=== PATIENT | male | born 1935 | race Caucasian/White ===

== ENCOUNTER → 2023-12-29 | Outpatient (REF) | payer MEDICARE, SELFPAY ==
[2023-12-29 10:58] LABS: Hemoglobin A1c 6.3 % (3.8-5.6)
== END ==
LOC: OLS.ACH2 05:00
PROVIDERS: Visit Provider Internal Medicine
DX: E11.40 Type 2 diabetes mellitus with diabetic neuropathy, unspecified (principal)
CPT/HCPCS: 36415; 83036

== ENCOUNTER 2024-03-21 01:46 | Emergency (ER) | payer MEDICARE, SELFPAY ==
[2024-03-21] VITALS (8 sets, daily range): BP systolic 121–138; BP diastolic 50–64; PULSE 73–87; RESP 16–22; TEMP 36.8–36.9; O2SAT 80–93; BMI 23.1
--- NOTE | 2024-03-21 01:56 | ED.RN ---
SpO2 82-84% resting in bed on RA. Pt declined wanting O2 stating I don't need that, I am breathing fine. Educated on normal SpO2 levels and patient continues to decline the need for O2.
[2024-03-21] MEDS: Ipratropium/Albuterol Sulfate 3 ML AMPUL.NEB INHALATION (02:44)
[2024-03-21] MEDS: Benzonatate 100 MG Capsule PO (03:08)
--- NOTE | 2024-03-21 03:20 | RAD_ITS ---
EXAM: XR CHEST, 2 VIEWS CLINICAL INDICATION: cough cough TECHNIQUE: Frontal and lateral views of the chest. COMPARISON: No relevant prior studies available. FINDINGS: LUNGS AND PLEURAL SPACES: There are patchy pulmonary infiltrates in the upper and lower lung mcca[place] bilaterally with denser infiltration in the left lower lung field. There may be some left lower lobe atelectasis as well. No pneumothorax. No effusion. HEART: Unremarkable. Cardiac silhouette not enlarged. MEDIASTINUM: Central airways and mediastinal contour are unremarkable. BONES/JOINTS: There are sternotomy wires. There are multilevel degenerative changes in the visualized spine. No acute fracture. SOFT TISSUES: Unremarkable. VASCULATURE: There is atherosclerotic calcification of the aortic arch. RAD/Chest PA and Lateral IMPRESSION: Bilateral pulmonary airspace infiltrates as well as left lower lobe atelectasis. Findings are suspicious for multifocal pneumonia. Electronically Signed: Froylan Roberts MD at 5:05 EDT Reading Location ID and State: [facility] / [place] , Service support ,
--- NOTE | 2024-03-21 03:45 | EDS_ITS ---
HPI History of Present Illness Chief Complaint: General Illness Informant: patient, EMS and SNF Narrative Narrative: Patient is an 88-year-old male with past medical history of hypertension hyperlipidemia diabetes and dementia. He states that he has had congestion and cough for multiple weeks. He stays at a custodial secondary to his dementia. [facility] reports that he does not typically require oxygen and that this evening his pulse ox was low and therefore they wanted him evaluated and sent to him and at this time. Patient reports that he was swabbed at the custodial and he denies any known sick contacts or fevers or chills. He admits to congestion and cough but states it is not affecting him as he does not feel short of breath but has a custodial did not want him to stay at their facility he agreed to come in for evaluation [facility] Medical History (Updated 03/21/24 @ 07:[address] Ameya Todd, DO) Polyosteoarthritis Hypertension Hyperlipemia Diabetes mellitus Alzheimers disease Home Medications ?Medication ?Instructions ?Recorded ?Last Taken ?Type aspirin 81 mg tablet,delayed 81 mg PO DAILY 03/21/24 Unknown History release (Adult Aspirin Regimen) atorvastatin 40 mg tablet 40 mg PO QHS 03/21/24 Unknown History azithromycin 250 mg tablet See Rx Instructions PO .COMPLEX #6 03/21/24 Unknown Rx tabs donepezil 5 mg tablet 5 mg PO DAILY 03/21/24 Unknown History doxycycline hyclate 100 mg capsule 100 mg PO BID 10 days #20 caps 03/21/24 Unknown Rx gabapentin 600 mg tablet 600 mg PO QHS 03/21/24 Unknown History metformin 500 mg tablet 500 mg PO BID 03/21/24 Unknown History metoprolol succinate 25 mg 12.5 mg PO DAILY 03/21/24 Unknown History tablet,extended release 24 hr Allergy/AdvReac Type Severity Reaction Status Date / Time No Known Allergies Allergy Verified 03/21/24 04:10 Social History Smoking Status: Former smoker ROS ROS ED ROS Narrative Please note review of systems may be unreliable secondary to patient's history of dementia Constitutional Constitutional ED: Denies chills or fever(s) ENT ENT ED: Reports rhinorrhea and sore throat Cardiovascular Cardiovascular: Denies chest pain Respiratory/Chest Respiratory/Chest: Reports cough; Denies dyspnea Gastrointestinal Gastrointestinal: Denies abdominal pain, diarrhea, nausea or vomiting Genitourinary Genitourinary ED: Denies dysuria Musculoskeletal Musculoskeletal: Denies myalgias Integumentary Denies rash Neurologic Neurologic: Denies headache(s) Hematologic/Lymphatic Hematologic/Lymphatic: Denies easy bleeding or easy bruising EXAM Physical Exam Const Vital Signs: 03/21/24 01:48 03/21/24 01:57 03/21/24 02:37 Temperature 98.3 F Temperature Source Oral Pulse Rate 83 Respiratory Rate 22 H 16 Respiratory Effort Normal Non-Labored Respiratory Pattern Tachypnea Blood Pressure 138/64 H Blood Pressure Mean 88 Pulse Ox 80 88 Oxygen Delivery Method Room Air Room Air Oxygen Flow Rate (L/min) 03/21/24 02:37 03/21/24 02:47 03/21/24 02:52 Temperature Temperature Source Pulse Rate 87 Respiratory Rate 20 H 18 Respiratory Effort Respiratory Pattern Normal Blood Pressure Blood Pressure Mean Pulse Ox 92 90 Oxygen Delivery Method Nasal Cannula Nasal Cannula Oxygen Flow Rate (L/min) 3 3 03/21/24 04:00 03/21/24 05:59 03/21/24 06:26 Temperature 98.5 F Temperature Source Pulse Rate 87 83 81 Respiratory Rate 20 H 18 18 Respiratory Effort Respiratory Pattern Blood Pressure 121/54 H 124/54 H 122/50 H Blood Pressure Mean 76 77 74 Pulse Ox 92 91 91 Oxygen Delivery Method Nasal Cannula Nasal Cannula Oxygen Flow Rate (L/min) 2 3 Positive well nourished and well developed General Appearance ED: well developed; Negative for pallor HEENT HEENT Narrative: There is cobblestoning noted in the posterior pharynx consistent with sinus drainage without tongue or lip swelling oral lesions airway edema or compromise No secondary changes in the posterior pharynx to suggest infection Eyes PERRL and EOMs intact bilaterally General Eye ED: Negative for pale conjunctiva or scleral icterus Neck supple and no JVD Neck Narrative: No nuchal rigidity or meningeal signs Chest Wall palpation of chest normal Resp normal respiratory effort Resp Narrative: Breath sounds are diminished throughout with rhonchi noted in the bilateral lobes without nasal flaring retractions tachypnea or accessory muscle use Cardio regular rate and regular rhythm Rate: other Other Details: Radial and carotid pulses are equal and symmetric GI normal to inspection, nondistended, normoactive bowel sounds, non-tender, non- distended and no masses GI Narrative: No voluntary guarding or rigidity or pulsatile mass Auscultation: normoactive bowel sounds Palpation: soft Extremity normal to inspection Extremity Narrative: No asymmetric edema no pitting edema negative Homans' sign bilaterally Neuro CN's II-XII intact bilaterally Neuro Narrative: Patient is at his baseline mental status consistent with history of dementia Sensorium / Orientation: alert Motor Exam: strength 5/5 throughout Psych Psych Narrative: Patient has a flat affect Skin no rashes or lesions noted and no wounds General Skin Exam: Negative for jaundice or pallor MDM MDM MDM Narrative Medical decision making narrative: Patient arrived to the ER hypoxic with a pulse ox of 80 to 85% on room air. Despite this he did not have nasal flaring retractions tachypnea or accessory muscle use and reported that he felt overall okay. He denies any history of lung pathology or need for supplemental oxygen. With this there is concern he could have COVID versus influenza versus RSV versus pneumothorax versus pleural effusion versus pneumonia. A chest x-ray was obtained which showed changes concerning for multifocal disease so a CT was obtained and basic blood work. Labs revealed no clinically significant findings such as leukocytosis or left shift. CT scan did confirm that he has multifocal pneumonia. However his chart review reveals that he is DNR comfort care only. His brother who is the power of ip technology transactions attorney was contacted and does confirm that he is a comfort care only. After discussing the case with the power of ip technology transactions attorney he agrees that his brother would not want placed in the hospital and would rather go home. At this time he is not showing signs of sepsis and as he is requiring supplemental oxygen but is a comfort care only and does not wish to be admitted he will be given an order form for oxygen on an outpatient basis and antibiotics will be started orally as well. Lab Data Attestation: I reviewed the patient's lab results. Labs: Laboratory Results - last 24 hr 03/21/24 04:20 WBC 9.6 RBC 4.52 L Hgb 13.8 Hct 43.4 MCV 96.0 H MCH 30.5 MCHC 31.8 L RDW Std Deviation 48.0 H RDW Coeff of Juan C 13.5 Plt Count 222 MPV 9.9 Immature Gran % (Auto) 0.400 Neut % (Auto) 79.7 H Lymph % (Auto) 13.2 L Orange % (Auto) 6.0 Eos % (Auto) 0.1 Baso % (Auto) 0.6 Absolute Neuts (auto) 7.6 Absolute Lymphs (auto) 1.27 Nucleated RBC % 0 Sodium 140 Potassium 3.8 Chloride 108 H Carbon Dioxide 24.0 Anion Gap 8 BUN 37 H Creatinine 1.08 Estim Creat Clear Calc 47.88 Est GFR (MDRD) Af Amer 83 Est GFR (MDRD) Non-Af 68 BUN/Creatinine Ratio 34.3 H Glucose 131 H Lactic Acid 4.2 H* Calcium 9.3 Magnesium 1.8 B-Natriuretic Peptide 185.5 H Radiography Diagnostic Testing: Clinical Impression(s) from Imaging Studies Chest X-Ray 03/21/24 03:20 IMPRESSION: Bilateral pulmonary airspace infiltrates as well as left lower lobe atelectasis. Findings are suspicious for multifocal pneumonia. Electronically Signed: Froylan Roberts MD at 5:05 EDT , Chest CT 03/21/24 04:09 IMPRESSION: Bilateral pneumonia including lobar pneumonia within the LLL; additional consolidation/pneumonia noted within the left upper lobe posteriorly, right upper lobe posteriorly, and right lower lobe. Minimal associated left pleural effusion. Mild mediastinal adenopathy. Previous median sternotomy and CABG. Electronically Signed: Daniel Kaplan MD at 5:13 EDT , Chest x-ray as interpreted by the emergency medicine physician reveals bilateral opacities within all lobes of the lung tissue consistent with pneumonia Discharge Plan Triage Chief Complaint: General Illness ED Provider: Ameya Todd Dx/Rx/DC Orders Clinical Impression: Multifocal pneumonia, Dementia, Hypertension, Hypoxia Instructions: ED Pneumonia (Adult) Prescriptions: New doxycycline hyclate 100 mg capsule 100 mg PO BID 10 Days Qty: 20 0RF azithromycin 250 mg tablet See Rx Instructions .ROUTE .COMPLEX Qty: 6 0RF Rx Instructions: For 250 mg dose pack: take 500 mg today (day 1), then 250 mg for 4 days (days 2-5) No Action aspirin [Adult Aspirin Regimen] 81 mg tablet,delayed release (DR/EC) 81 mg PO DAILY atorvastatin 40 mg tablet 40 mg PO QHS gabapentin 600 mg tablet 600 mg PO QHS donepezil 5 mg tablet 5 mg PO DAILY metformin 500 mg tablet 500 mg PO BID metoprolol succinate 25 mg tablet extended release 24 hr 12.5 mg PO DAILY Activity Restrictions/Additional Instructions: Your x-ray and CT scan showed multifocal pneumonia. Take your antibiotic as directed to help resolve this. Wear the oxygen as needed to keep your pulse ox greater than 90% and return to the ER should you have any further concerns Print Language: Luxembourgish Disposition Disposition: Home, Self Care
--- NOTE | 2024-03-21 04:09 | CT_ITS ---
EXAM: CT CHEST WITHOUT INTRAVENOUS CONTRAST CLINICAL INDICATION: pneumonia TECHNIQUE: Helically acquired images were obtained of the chest without intravenous contrast. This CT exam was performed using one or more of the following dose reduction techniques: automated exposure control, adjustment of the mA and/or kV according to patient size, and/or use of iterative reconstruction technique. RADIATION DOSE: Total DLP: 423.77 mGy-cm. COMPARISON: Chest radiographs of this same date. FINDINGS: LUNGS AND PLEURAL SPACES: Dense consolidation with air bronchograms noted within the posterior segment of the right upper lobe. Additional dense consolidation noted within the right lower lobe medially and posteriorly, with patchy airspace disease more anteriorly within the right lower lobe. On the left, there is dense consolidation of the lower lobe with numerous air bronchograms, and additional dense consolidation with air bronchograms noted posteriorly within the left upper lobe. A small cluster of air bubbles is seen within the left lower lobe consolidation by no air-fluid levels seen to definitely indicate cavitation. A very small left pleural effusion is present. No obstructing endobronchial lesion is identified. HEART: Extensive coronary artery calcification and/or stent material. No significant pericardial effusion. MEDIASTINUM: A few normal-sized mediastinal lymph nodes are present. An enlarged lymph node is seen in the AP window measuring 13 mm in short axis diameter. A borderline enlarged precarinal node is present measuring 10 mm in short axis diameter. An additional precarinal node is enlarged, measuring 13 mm in short axis diameter. No subcarinal adenopathy. Esophagus is unremarkable. No hiatal hernia. THYROID: Unremarkable. No thyroid lesions. BONES/JOINTS: Previous sternotomy. Accentuated thoracic kyphosis. Flowing osteophytes throughout the thoracic spine with fusion of many of the thoracic disc spaces. No acute fracture. No suspicious lytic or blastic abnormality. VASCULATURE: Mild fusiform dilatation of the ascending thoracic aorta which measures 4 cm in transverse diameter, as can be seen with aortic valvular disease these. Aortic arch and descending thoracic aorta are calcific, and are normal in caliber. INTRAPERITONEAL SPACE: Visualized liver, gallbladder, spleen, and adrenal glands are unremarkable. Kidneys demonstrate nonspecific perirenal stranding. Visualized pancreas is atrophic. No pneumoperitoneum is noted. CT/Chest without Contrast IMPRESSION: Bilateral pneumonia including lobar pneumonia within the LLL; additional consolidation/pneumonia noted within the left upper lobe posteriorly, right upper lobe posteriorly, and right lower lobe. Minimal associated left pleural effusion. Mild mediastinal adenopathy. Previous median sternotomy and CABG. Electronically Signed: Daniel Kaplan MD at 5:13 EDT ,
[2024-03-21 04:30] LABS: Absolute Lymphocyte Count 1.27 X10^3/uL (0.83-4.51); Absolute Neutrophil Count 7.6 X10^3/uL (2.0-7.7); Basophil# 0.06 X10^3/uL; Basophil% 0.6 % (0-1); Eosinophil# 0.01 X10^3/uL; Eosinophils% 0.1 % (0-5); Hematocrit 43.4 % (40-54); Hemoglobin 13.8 g/dL (13.0-16.5); Lymphocyte # 1.27 X10^3/ul (0.83-4.51); Lymphocyte % 13.2 % (19-41); Mean Corp Hgb Conc 31.8 g/dL (32-36); Mean Corpuscular Hgb 30.5 pg (27.0-32.0); Mean Platelet Vol. 9.9 fl (6.2-12.0); Monocyte# 0.58 X10^3/uL; NRBC Flagged by Analyzer 0 % (0-5); Neutrophil # 7.63 X10^3/uL (2.7-7.7); Neutrophil % 79.7 % (47-70); Platelet Count 222 K/mm3 (150-450); RBC Distribution Width CV 13.5 % (11.6-14.6); Red Blood Count 4.52 M/mm3 (4.6-6.2); White Blood Count 9.6 K/mm3 (4.4-11.0)
[2024-03-21 04:45] LABS: Anion Gap 8 (5-15); BUN 37 mg/dL (7-18); BUN/Creat Ratio 34.3 RATIO (10-20); Calcium,Total 9.3 mg/dL (8.5-10.1); Chloride 108 mmol/L (98-107); Creatinine, Serum 1.08 mg/dL (0.70-1.30); EST Glomerular Filtration Rate 68 mL/min (>60); Est Glom Filt Rate - Afr Amer 83 mL/min (>60); Estimated Creatinine Clearance 47.88 ml/min; Glucose 131 mg/dL (74-106); Magnesium 1.8 mg/dL (1.6-2.6); Potassium 3.8 mmol/L (3.5-5.1); Sodium Level 140 mmol/L (136-145)
[2024-03-21 04:57] LABS: BNP,B-Type NATRIURETIC PEPTIDE 185.5 pg/mL (0-100)
[2024-03-21 05:30] LABS: Lactic Acid 4.2 mmol/L (0.4-1.9)
[2024-03-21] MEDS: Doxycycline 100 MG CAPSULE PO (05:56)
[2024-03-21] MEDS: Azithromycin 250 MG Tablet 500 MG PO (05:56)
--- NOTE | 2024-03-21 06:07 | ED.RN ---
called physician at [id number]. transport is scheduled for 0830.
--- NOTE | 2024-03-21 06:29 | ED.RN ---
called [facility] and report given to Ysabel. Jose ETA [id number]
[2024-03-21 08:24] LABS: Reflex Lactate? Y
== END 2024-03-21 08:46 | disposition home or self-care (01) ==
PROVIDERS: Emergency Provider Emergency Medicine; Visit Provider Emergency Medicine
DX: J18.1 Lobar pneumonia, unspecified organism (principal); F02.80 Dementia in other diseases classified elsewhere, unspecified severity, without behavioral disturbance, psychotic disturbance, mood disturbance, and anxiety; E11.9 Type 2 diabetes mellitus without complications; I10 Essential (primary) hypertension; R09.02 Hypoxemia; Z87.891 Personal history of nicotine dependence; E78.5 Hyperlipidemia, unspecified; Z79.82 Long term (current) use of aspirin; Z79.899 Other long term (current) drug therapy; Z79.84 Long term (current) use of oral hypoglycemic drugs; R06.82 Tachypnea, not elsewhere classified
CPT/HCPCS: 71046; 71250; 80048; 83605; 83735; 83880; 85025; 94640; 99283; A4216